=== PATIENT | female | born 1950 | race Caucasian/White ===

== ENCOUNTER 2022-06-04 09:36 | Outpatient (CLI) | payer MEDICARE, OTHER ==
[2022-06-04 14:49] LABS: HCT - HEMATOCRIT 42.7 % (37.0-47.0); HGB - HEMOGLOBIN 13.6 g/dL (12.0-16.0); MEAN CORPUSCULAR HEMOGLOBIN 29.8 pg (27.0-31.0); MEAN CORPUSCULAR HGB CONC 31.9 g/dL (32.0-36.0); MEAN CORPUSCULAR VOLUME 93.6 fL (81.0-99.0); RED BLOOD COUNT 4.56 10^6/uL (4.20-5.40); RED CELL DISTRIBUTION WIDTH 13.3 % (12.0-15.0); WHITE BLOOD COUNT 4.2 x10^3/uL (4.8-10.8)
[2022-06-04 15:09] LABS: CALCIUM 9.5 mg/dL (8.5-10.3); CREATININE 0.6 mg/dL (0.4-1.0); POTASSIUM 3.8 mmol/L (3.5-5.0)
[2022-06-04 15:34] LABS: THYROID STIMULATING HORMONE 1.06 uIU/mL (0.34-5.60)
== END 2022-06-04 09:37 | disposition home or self-care (01) ==
LOC: LAB.S 09:36
PROVIDERS: ATTEND Emergency Medicine
DX: R59.0 Localized enlarged lymph nodes (principal); E21.5 Disorder of parathyroid gland, unspecified; E03.9 Hypothyroidism, unspecified
CPT/HCPCS: 36415; 80048; 83970; 84443; 85027

== ENCOUNTER 2022-06-30 17:42 | Outpatient (CLI) | payer MEDICARE, OTHER ==
[~2022-06-30 17:42] MED LIST: iohexoL-300 100 ML VIAL ONE
[2022-06-30] MEDS ORDERED: iohexoL-300 100 ML VIAL IVP ONE (18:20)
--- NOTE | 2022-07-01 21:02 | CT Report ---
PROCEDURE: SOFT TISSUE NECK W INDICATIONS: LEFT NECK PAIN, SALIVARY GLAND SWELLING CONTRAST: 100ml omnipaque 300 TECHNIQUE: After the administration of intravenous contrast, 3.0 mm axial sections acquired from the sella to th e aortic arch. Additional oblique axial 3.0 mm sections acquired through the pharynx. 3 mm thick co delvin reformats were generated. For radiation dose reduction, the following was used: automated exp osure control, adjustment of mA and/or kV according to patient size. COMPARISON: None. FINDINGS: Image quality: Excellent. Lymph nodes: No enlarged lymph nodes seen throughout the neck. Vessels: Visualized vasculature appears patent. Neck spaces: The oropharynx, nasopharynx, and pharynx demonstrate no mucosal lesions. The vocal cor ds, false vocal cords, pyriform sinuses, epiglottis, vallecula, and tongue base all appear normal. E xtramucosal spaces appear unremarkable. Glands: The parotid and submandibular glands appear normal. The thyroid is normal in size and there are no incidental findings. Miscellaneous: Visualized brain and orbits appear normal. Lung apices appear clear. Superficial so ft tissues appear normal. Bones: No suspicious bony lesions. Visualized sinuses and mastoids appear unremarkable. IMPRESSION: Salivary glands are symmetrical in size. No surrounding inflammatory change. No discrete mass lesions . CLINICAL RECOMMENDATION STATEMENTS: In patients <35 years with an ITN detected on CT, MRI, or extrathyroidal ultrasound, the Committee re commends further evaluation with dedicated thyroid ultrasound if the nodule is "e1 cm and has no susp icious imaging features, and if the patient has normal life expectancy. In patients "e35 years with an ITN detected on CT, MRI, or extrathyroidal ultrasound, the Committee r ecommends further evaluation with dedicated thyroid ultrasound if the nodule is "e1.5 cm and has no s uspicious imaging features, and if the patient has normal life expectancy. (ACR, 2014) Reviewed by: Iris Manrique MD on 07/01/2022 9:01 PM PDT Approved by: Iris Manrique MD on 07/01/2022 9:01 PM PDT Station ID: [id number]
== END 2022-06-30 17:43 | disposition home or self-care (01) ==
LOC: DI 17:42
PROVIDERS: ATTEND Internal Medicine
DX: M54.2 Cervicalgia (principal); R22.0 Localized swelling, mass and lump, head
CPT/HCPCS: 70491; Q9967

== ENCOUNTER 2022-07-08 09:38 | Outpatient (CLI) | payer MEDICARE, OTHER ==
[2022-07-08 15:30] LABS: ALBUMIN 4.5 g/dL (3.2-5.5); ALBUMIN/GLOBULIN RATIO 1.7 (1.0-2.2); ALKALINE PHOSPHATASE 52 IU/L (42-121); ALT ALANINE AMINOTRANSFERASE 36 IU/L (10-60); AMYLASE 226 U/L (28-100); AST ASPARTATE AMINOTRANSFERASE 28 IU/L (10-42); BILIRUBIN,TOTAL 0.6 mg/dL (0.2-1.0); BUN - BLOOD UREA NITROGEN 12 mg/dL (6-20); CALCIUM 9.2 mg/dL (8.5-10.3); CARBON DIOXIDE - CO2 28 mmol/L (21-32); CHLORIDE 105 mmol/L (101-111); CHOL/HDL RATIO 3.3 (<4.4); CHOLESTEROL 208 mg/dL; CREATININE 0.6 mg/dL (0.4-1.0); GFR - MDRD 99 (>89); GLUCOSE 96 mg/dL (70-100); HDL CHOLESTEROL 63 mg/dL; LDL CHOLESTEROL,CALCULATED 126 mg/dL; LIPASE 39 U/L (22-51); PHOSPHORUS 3.6 mg/dL (2.5-4.6); POTASSIUM 3.8 mmol/L (3.5-5.0); SODIUM 138 mmol/L (135-145); TOTAL PROTEIN 7.2 g/dL (6.7-8.2); TRIGLYCERIDES 97 mg/dL; VLDL CHOLESTEROL 19 mg/dL
== END 2022-07-08 09:39 | disposition home or self-care (01) ==
LOC: LAB.S 09:38
PROVIDERS: ATTEND Nurse Practitioner Acute Care
DX: R53.83 Other fatigue (principal); R10.9 Unspecified abdominal pain; Z13.228 Encounter for screening for other metabolic disorders; Z13.220 Encounter for screening for lipoid disorders; Z90.89 Acquired absence of other organs; E05.90 Thyrotoxicosis, unspecified without thyrotoxic crisis or storm
CPT/HCPCS: 36415; 80053; 80061; 82150; 82306; 83690; 83721; 84100

== ENCOUNTER 2022-07-16 07:25 | Outpatient (CLI) | payer MEDICARE, OTHER ==
--- NOTE | 2022-07-16 17:08 | Ultrasound Report ---
PROCEDURE: Abdomen Complete INDICATIONS: ABD PAIN TECHNIQUE: Real-time scanning was performed of the abdominal and retroperitoneal organs, with image documentatio n. COMPARISON: None. FINDINGS: Liver: Increased liver echogenicity, commonly mild hepatic steatosis. A few hepatic cysts, which are benign. Gallbladder: Absent. Biliary ducts: Intrahepatic bile ducts are non-dilated. Extrahepatic bile duct caliber measures 12. 7 mm. Normal is 6-7 mm or less in diameter, or 10 mm or less post-cholecystectomy. Pancreas: Visualized portions of the pancreas are sonographically normal. Spleen: Spleen is normal in size and homogeneous in echotexture. Kidneys: Kidneys are normal in size and echotexture. Right kidney measures 10.1 cm long; left kidne y measures 10.8 cm long. Possible stone in the superior pole of the right kidney measuring 5 mm. Mild left-sided pelvocaliectasis. No solid masses. No complex renal cystic lesions which require follow- up. Aorta: Visualized aorta is normal in caliber at less than 3 cm. Iliacs: Proximal common iliac arteries are normal in caliber at less than 2.5 cm. IVC: Intrahepatic inferior vena cava is patent. Miscellaneous: No free abdominal fluid. IMPRESSION: Mild dilation of the extra hepatic biliary tree, measuring up to 13 mm. Correlate with bilirubin. If elevated, consider MRI with contrast/MRCP (pancreas protocol). Probable nonobstructing stone in the superior calyx of the right kidney. Reviewed by: Ry Page on 07/16/2022 4:07 PM PRAKASH Approved by: Ry Page on 07/16/2022 4:07 PM AKAVINASH Station ID: [id number]
== END 2022-07-16 07:26 | disposition home or self-care (01) ==
LOC: DI 07:25
PROVIDERS: ATTEND Nurse Practitioner Acute Care
DX: R10.9 Unspecified abdominal pain (principal)

== ENCOUNTER 2022-08-06 08:12 | Outpatient (CLI) | payer MEDICARE, OTHER ==
[~2022-08-06 08:12] MED LIST changes: +GADOBUTROL 7.5 MMOL/7.5 ML VIAL ONE; -iohexoL-300 100 ML VIAL ONE
[2022-08-06] MEDS ORDERED: iohexoL-300 100 ML VIAL ONE (08:19)
[2022-08-06] MEDS ORDERED: iohexoL-300 100 ML VIAL IVP ONE (08:34)
[2022-08-06] MEDS ORDERED: GADOBUTROL 7.5 MMOL/7.5 ML VIAL IVP ONE (09:51)
--- NOTE | 2022-08-06 12:52 | CT Report ---
PROCEDURE: IVP INDICATIONS: KIDNEY STONE, UNSPECIFIED HYDRONEPHROSIS CONTRAST: 140ml Omnipaque 300 TECHNIQUE: After the administration of intravenous contrast, 5 mm thick sections acquired from the diaphragms to the symphysis. 5 mm thick coronal and sagittal reformats were acquired. For radiation dose reducti on, the following was used: automated exposure control, adjustment of mA and/or kV according to shari ent size. COMPARISON: None. FINDINGS: Image quality: Excellent. Urinary system: Both kidneys are normal in size. No hydronephrosis or nephrolithiasis on pre-contras t images. No solid masses or complex cysts which require follow up. The opacified renal calyces and ureters appear normal, without filling defect. Bladder wall thickness is normal, accounting for unde rdistention. No calcified bladder stones. No filling defect within the opacified bladder. OTHER Lung bases and heart: Unremarkable. Liver: Subcentimter hypoattenuating liver lesions, too small to characterize by CT. Additional larger hepatic cysts are present, without suspicious features. Gallbladder and biliary tree: Surgically absent. No biliary dilation, accounting for post-cholecystec elaine state. Spleen: No splenomegaly. Pancreas: No pancreatic ductal dilation. Adrenals: No adrenal nodule. Bowel and peritoneum: No bowel distension. No pathologic free fluid. Retroperitoneal calcification po sterior to the pancreatic tail, probably representing a sequela of fat necrosis. Abdominal Lymph nodes: No central or retroperitoneal adenopathy. Vessels: Unremarkable. Reproductive organs: Unremarkable. Pelvic Lymph nodes: Unremarkable. Bones: No aggressive osseous abnormality. Other: None. IMPRESSION: No nephrolithiasis or filling defects within the opacified renal collecting systems, ureters or under distended bladder. Reviewed by: Ry Page on 08/06/2022 12:51 PM PDT Approved by: Ry Page on 08/06/2022 12:51 PM PDT Station ID: [id number]
--- NOTE | 2022-08-06 12:58 | MRI Report ---
PROCEDURE: MRCP W/WO INDICATIONS: ELEVATED AMYLASE, DILATED BILE DUCT, KIDNEY STONE CONTRAST: GADAVIST 6.4 ML TECHNIQUE: Coronal ultra fast SE through the abdomen, axial 2-D spoiled GE in- and [id number], and breath-hold T2 FSE with fat saturation through the biliary system and pancreas. Oblique coronal and axial thin- slice ultra fast SE, radial thick-slab ultra fast SE centered on the extrahepatic bile ducts. COMPARISON: Same day CT IVP, CT 02/20/2013 FINDINGS: Image quality: Excellent. Gallbladder: Surgically absent. Biliary tree: Prominent, but within normal limits accounting for a post-cholecystectomy state. Pancreas: No pancreatic ductal dilation. Lung bases and heart: Unremarkable. Liver: No solid mass. Hepatic cystd without internal complexity, which are benign. Spleen: No splenomegaly. Adrenals: No adrenal nodule. Kidneys and ureters: No hydronephrosis. No renal cystic lesion which requires follow up. No solid mas s. Bowel and peritoneum: No bowel distension. No pathologic free fluid. Lymph nodes: No central or retroperitoneal adenopathy. Vessels: No infrarenal aortic aneurysm. Bones: No aggressive osseous abnormality. Other: No significant ventral hernia. IMPRESSION: Cholecystectomy. No biliary dilation, accounting for a postcholecystectomy state. Reviewed by: Ry Page on 08/06/2022 12:56 PM PDT Approved by: Ry Page on 08/06/2022 12:56 PM PDT Station ID: [id number]
== END 2022-08-06 08:13 | disposition home or self-care (01) ==
LOC: DI 08:12
PROVIDERS: ATTEND Nurse Practitioner Acute Care
DX: K83.9 Disease of biliary tract, unspecified (principal); R74.8 Abnormal levels of other serum enzymes; N13.2 Hydronephrosis with renal and ureteral calculous obstruction; Z90.49 Acquired absence of other specified parts of digestive tract
CPT/HCPCS: 74178; 74183; A9585; Q9967

== ENCOUNTER 2022-09-07 10:37 | Outpatient (CLI) | payer MEDICARE, OTHER ==
--- NOTE | 2022-09-07 16:27 | DEXA Report ---
PROCEDURE: Dexa Spine and/or Hip INDICATIONS: POST MENOPAUSAL TECHNIQUE: Dual energy x-ray absorptiometry (DXA) was performed on a [employer]. Regions measur ed are the AP Spine, femoral neck, and if needed forearm. COMPARISON: none. FINDINGS: Lumbar Spine: Bone Mineral Density 1.151 g/cm/cm,T score -0 point. Left Femoral Neck: Bone Mineral Density 0.795 g/cm/cm, T score -1.7. Left Hip: Bone Mineral Density 0.865 g/cm/cm,T score -1.1. (T score greater or equal to -1.0: NORMAL) (T score from -1.1 to -2.4: OSTEOPENIA) (T score less than or equal to -2.5 to: OSTEOPOROSIS) Impression: By WHO criteria, this patient has osteopenia. Patients with diagnosis of osteoporosis or osteopenia should have regular bone mineral density assess ment. For those eligible for Medicare, routine testing is allowed once every 2 years. Testing frequ ency can be increased for patients who have rapidly progressing disease or for those who are receivin g medical therapy to restore bone mass. Reviewed by: Mariaa Woodson MD on 09/07/2022 4:26 PM PDT Approved by: Mariaa Woodson MD on 09/07/2022 4:26 PM PDT Station ID: [id number]
== END 2022-09-07 10:38 | disposition home or self-care (01) ==
LOC: DI 10:37
PROVIDERS: ATTEND Nurse Practitioner Acute Care
DX: Z78.0 Asymptomatic menopausal state (principal); M85.80 Other specified disorders of bone density and structure, unspecified site